=== PATIENT | female | born 2000 | race Caucasian/White ===

== ENCOUNTER 2020-01-06 18:05 | Emergency (ER) | payer OTHER, SELFPAY ==
--- OUTSIDE RECORDS SUMMARY | 2020-01-06 18:08 | XMS REPORT | Continuity of Care Document ---
:2000 Author Organization [facility] t Address [address] [place] [place] [address] Care Team Providers Name Role Phone Unavailable Unavailable Unavailable Problems This patient has no known problems. Allergies, Adverse Reactions, Alerts This patient has no known allergies or adverse reactions. Medications This patient has no known medications. Procedures This patient has no known procedures. Results This patient has no known results.
--- NOTE | 2020-01-06 19:37 | EDPHYS ---
Physician Documentation [facility] Name: Radha Puga Age: 19 yrs Sex: Female : 2000 Arrival Date: 01/06/2020 Time: 18:07 Bed 19 Private MD: ED Physician Xander Schmidt HPI: 01/05 19:28 This 19 yrs old Female presents to ER via Ambulatory with complaints of jmm Allergy Symptoms, Sinus Congestion. 19:28 The patient or guardian reports cough. Onset: The symptoms/episode began/occurred jm gradually, 2 week(s) ago. Modifying factors: The symptoms are alleviated by nothing. the symptoms are aggravated by nothing. This is a 19 year old female with no chronic medical conditions that rpesents to the ED with complaints of cough, sinus congestion, fatigue beginning approx 3 days ago. Symptoms initially began 2 weeks ago but had resolved. Symptoms returned 3 days ago. Denies fever. Denies sore throat. . 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 - Social history:: Smoking status: Patient denies any tobacco usage or history of. ROS: 19:28 Constitutional: Positive for body aches, fatigue. jmm 19:28 Respiratory: Positive for cough. 19:28 All other systems are negative. Exam: 19:28 Constitutional: This is a well developed, well nourished patient who is awake, alert, jmm and in no acute distress. 19:28 Head/Face: atraumatic. Eyes: EOMI, no conjunctival erythema appreciated 19:28 Chest/axilla: Normal chest wall appearance and motion. 19:28 Respiratory: Normal respirations, no respiratory distress appreciated Abdomen/GI: Non distended, soft Back: Normal ROM Skin: General appearance color normal MS/ Extremity: Moves all extremities, no obvious deformities appreciated, no edema noted to the lower extremities Neuro: Awake and alert, normal gait Psych: Behavior is normal, Mood is normal, Patient is cooperative and pleasant 19:28 Head/face: Sinus tenderness, is not appreciated. 19:28 ENT: Posterior pharynx: erythema, that is mild. 19:28 Cardiovascular: Rate: normal, Rhythm: regular, Pulses: no pulse deficits are appreciated. Vital Signs: 18:31 BP 117 / 81; Pulse 86; Resp 15 S; Temp 98.1; Pulse Ox 100% on R/A; Weight 77.11 kg (R); ca1 Height 5 ft. 1 in. (154.94 cm) (R); 19:30 BP 115 / 80; Pulse 81; Resp 18; Temp 98.1; Pulse Ox 100% on R/A; mg2 18:31 Body Mass Index 32.12 (77.11 kg, 154.94 cm) ca1 MDM: 19:28 Patient medically screened. [facility] 19:36 Data reviewed: vital signs, nurses notes. Counseling: I had a detailed discussion with scar the patient and/or guardian regarding: the historical points, exam findings, and any diagnostic results supporting the discharge/admit diagnosis, the need for outpatient follow up, to return to the emergency department if symptoms worsen or persist or if there are any questions or concerns that arise at home. Administered Medications: 19:37 Drug: Decadron 10 mg Route: IM; Site: left gluteus; mg2 19:37 Follow up: Response: No adverse reaction; Medication administered at discharge. mg2 Disposition: 01/06/20 19:36 Discharged to Home. Impression: Acute upper respiratory infection, unspecified. - Condition is Stable. - Discharge Instructions: Sinusitis, Adult, Upper Respiratory Infection, Adult. - Prescriptions for Flonase Allergy Relief 50 mcg/actuation Nasal spray,suspension - inhale 2 spray by INTRANASAL route once daily; 1 bottle. - Medication Reconciliation Form, Thank You Letter, Antibiotic Education, Prescription Opioid Use form. - Follow up: Private Physician; When: 2 - 3 days; Reason: Recheck today's complaints, Continuance of care, Re-evaluation by your physician. Addendum: 01/08/2020 19:28 Co-signature as Attending Physician, Xander Schmidt MD. r n Signatures: Tyron Masterson PA PA jmm Nieto, Roman, MD MD rn Gardose, Michele, RN RN mg2 Cherie Araujo RN RN ca1 Corrections: (The following items were deleted from the chart) 01/05 19:51 19:36 01/06/2020 19:36 Discharged to Home. Impression: Acute upper respiratory mg2 infection, unspecified. Condition is Stable. Forms are Medication Reconciliation Form, Thank You Letter, Antibiotic Education, Prescription Opioid Use. Follow up: Private Physician; When: 2 - 3 days; Reason: Recheck today's complaints, Continuance of care, Re-evaluation by your physician. scar
--- NOTE | 2020-01-06 19:37 | ER ---
Nurse's Notes [facility] Name: Radha Puga Age: 19 yrs Sex: Female : 2000 Arrival Date: 01/06/2020 Time: 18:07 Bed 19 Private MD: Diagnosis: Acute upper respiratory infection, unspecified Presentation: 01/05 18:31 Chief complaint: Patient states: Runny nose, congestion x 2 days. Reports cough. Denies ca1 fever. States, "I am allergic to a lot of things, and I am pretty sure this is just my allergies". Coronavirus screen: Client denies travel out of the [place] in the last 14 days. congestion, cough unrelated to allergies, runny nose. Ebola Screen: Patient negative for fever greater than or equal to 101.5 degrees Fahrenheit, and additional compatible Ebola Virus Disease symptoms Patient denies exposure to infectious person. Initial Sepsis Screen: Does the patient meet any 2 criteria? No. Patient's initial sepsis screen is negative. Does the patient have a suspected source of infection? No. Patient's initial sepsis screen is negative. Risk Assessment: Do you want to hurt yourself or someone else? Patient reports no desire to harm self or others. Onset of symptoms was January 06, 2020. 18:31 Method Of Arrival: Ambulatory ca1 18:31 Acuity: ENMANUEL 4 ca1 Triage Assessment: 19:10 General: Appears in no apparent distress. comfortable, Behavior is calm, cooperative. mg2 WAGE HAND: 18:34 LMP 12/23/2019 ca1 Historical: - Allergies: 18:34 No Known Allergies; ca1 - Home Meds: 18:34 None [Active]; ca1 - PMHx: 18:34 None; ca1 - PSHx: 18:34 ; ca1 - Immunization history:: Adult Immunizations up to date. - Social history:: Smoking status: Patient denies any tobacco usage or history of. Screenin:10 Abuse screen: Denies threats or abuse. Denies injuries from another. Nutritional mg2 screening: No deficits noted. Tuberculosis screening: No symptoms or risk factors identified. Fall Risk None identified. Assessment: 19:10 General: Appears in no apparent distress. comfortable, Behavior is calm, cooperative. mg2 Pain: Complains of pain in head. Neuro: Level of Consciousness is awake, alert, obeys commands, Oriented to person, place, time, situation, Reports headache. Cardiovascular: No deficits noted. Respiratory: Reports cough that is Airway is patent Trachea midline Respiratory effort is even, unlabored, Respiratory pattern is regular, symmetrical. GI: No signs and/or symptoms were reported involving the gastrointestinal system. : No signs and/or symptoms were reported regarding the genitourinary system. EENT: Reports nasal congestion. Derm: Skin is intact, is healthy with good turgor, Skin is pink, warm \\T\\ dry. normal. Musculoskeletal: Circulation, motion, and sensation intact. Capillary refill < 3 seconds. Vital Signs: 18:31 BP 117 / 81; Pulse 86; Resp 15 S; Temp 98.1; Pulse Ox 100% on R/A; Weight 77.11 kg (R); ca1 Height 5 ft. 1 in. (154.94 cm) (R); 19:30 BP 115 / 80; Pulse 81; Resp 18; Temp 98.1; Pulse Ox 100% on R/A; mg2 18:31 Body Mass Index 32.12 (77.11 kg, 154.94 cm) ca1 ED Course: 18:07 Patient arrived in ED. ag5 18:33 Triage completed. ca1 18:34 Arm band placed on right wrist. ca1 18:36 Tyron Masterson PA is PHCP. [facility] 18:36 Xander Schmidt MD is Attending Physician. [facility] 19:10 Patient has correct armband on for positive identification. mg2 19:10 No provider procedures requiring assistance completed. Patient did not have IV access mg2 during this emergency room visit. 19:30 James France, JOSÉ MIGUEL is Primary Nurse. mg2 Administered Medications: 19:37 Drug: Decadron 10 mg Route: IM; Site: left gluteus; mg2 19:37 Follow up: Response: No adverse reaction; Medication administered at discharge. mg2 Outcome: 19:36 Discharge ordered by MD. [facility] 19:50 Discharged to home ambulatory. mg2 19:50 Condition: good 19:50 Discharge instructions given to patient, Instructed on discharge instructions, follow up and referral plans. medication usage, Demonstrated understanding of instructions, follow-up care, medications, Prescriptions given X 1. 19:51 Patient left the ED. mg2 Signatures: Tyron Masterson PA PA jmm Gardose, Michele, RN RN mg2 Cherie Araujo RN RN ca1 Jesus Manuel, Michael ag5
[2020-01-06] MEDS ORDERED: dexAMETHasone 10 MG/ML VIAL ONE (19:45)
[2020-01-06 20:35] VITALS: BP 117/81; TEMP 98.1; O2SAT 100
== END 2020-01-06 19:51 | disposition home or self-care (01) ==
LOC: ER 18:05
DX: J06.9 Acute upper respiratory infection, unspecified (principal)
CPT/HCPCS: 96372; 99283; J1100

== ENCOUNTER 2020-08-28 13:17 | Emergency (ER) | payer OTHER, SELFPAY ==
--- OUTSIDE RECORDS SUMMARY | 2020-08-28 13:20 | XMS REPORT | Continuity of Care Document ---
:2000 Author Organization [facility] t Address [address] [place] [address] Care Team Providers Name Role Phone Felice White MD Attending Clinician Ultrasound, libby Attending Clinician Unavailable Eric Borwn Attending Clinician Problems This patient has no known problems. Allergies, Adverse Reactions, Alerts This patient has no known allergies or adverse reactions. Medications This patient has no known medications. Procedures This patient has no known procedures. Encounters Start End Encounter Admission Attending Care Care Encounter Source Date/Time Date/Time Type Type Clinicians Facility Department ID 2020-08-02 2020-08-02 Routine Cristina White [id number] 13:58:44 14:39:18 [place] [id number] Visit [place] [id number] Professio [phone] [address] 2020-07-28 2020-07-28 [address] [place], [facility] [id number] 09:57:50 10:57:50 Visit Adc William Starkey [id number] [place] [id number] Professio [phone] [address] 2020-07-05 2020-07-05 Initial Cristina White INJEFF [id number] 14:25:37 15:16:16 [place] [id number] Visit [place] [id number] Professio [phone] [place] [address] Building 2020-06-28 2020-06-28 Routine MAGALIE Horta [id number] 12:46:10 13:24:11 Marquita Reyes MANAGER OF PROCUREMENT [id number] Visit [facility] [id number] MATERNAL [phone] & CHILD [address] [place] [address] - [place] Results This patient has no known results.
[2020-08-28 14:59] LABS: SARS-COV-2 RT PCR NEGATIVE (NEGATIVE)
--- NOTE | 2020-08-28 15:49 | ER ---
Nurse's Notes [facility] Name: Radha Puga Age: 20 yrs Sex: Female : 2000 Arrival Date: 08/28/2020 Time: 13:18 Bed 30 Private MD: Diagnosis: Acute upper respiratory infection, unspecified Presentation: 08/28 13:43 Chief complaint: Patient states: sore throat and non productive cough since Friday, em denies body aches, loss of taste/smell, or fever. Coronavirus screen: Client denies travel out of the [place] in the last 14 days. Ebola Screen: Patient negative for fever greater than or equal to 101.5 degrees Fahrenheit, and additional compatible Ebola Virus Disease symptoms Patient denies exposure to infectious person. Patient denies travel to an Ebola-affected area in the 21 days before illness onset. No symptoms or risks identified at this time. Initial Sepsis Screen: Does the patient meet any 2 criteria? No. Patient's initial sepsis screen is negative. Does the patient have a suspected source of infection? No. Patient's initial sepsis screen is negative. Risk Assessment: Do you want to hurt yourself or someone else? Patient reports no desire to harm self or others. Onset of symptoms was August 28, 2020. 13:43 Method Of Arrival: Ambulatory em 13:43 Acuity: ENMANUEL 4 em Historical: - Allergies: 13:45 No Known Allergies; em - PMHx: 13:45 None; em - PSHx: 13:45 ; em - Immunization history:: Adult Immunizations up to date. - Social history:: Smoking status: Patient denies any tobacco usage or history of. Screenin:01 Abuse screen: Denies threats or abuse. Denies injuries from another. Nutritional ss screening: No deficits noted. Tuberculosis screening: Never had TB. Fall Risk None identified. Assessment: 15:01 General: Appears in no apparent distress. comfortable, Behavior is calm, cooperative, ss Denies fever. Pain: Denies pain. Neuro: Level of Consciousness is awake, alert, obeys commands, Oriented to person, place, time, situation, Pay Station Attendant are equal bilaterally. Cardiovascular: Capillary refill < 3 seconds is brisk in bilateral fingers Patient's skin is warm and dry. Respiratory: Airway is patent Respiratory effort is even, unlabored, Respiratory pattern is regular, symmetrical. GI: Abdomen is round Pt is almost 27 weeks Patient currently denies diarrhea, nausea, vomiting. EENT: Oral mucosa is moist. Throat is clear. Derm: Skin is pink, warm \T\ dry. normal. Musculoskeletal: Circulation, motion, and sensation intact. Range of motion: intact in all extremities, Swelling absent. Vital Signs: 13:43 BP 115 / 65; Pulse 62; Resp 18; Temp 98.4; Pulse Ox 98% on R/A; Weight 77.11 kg; Height em 5 ft. 1 in. (154.94 cm); Pain 0/10; 13:43 Body Mass Index 32.12 (77.11 kg, 154.94 cm) em ED Course: 13:18 Patient arrived in ED. ds1 13:18 Roxanne Vital F[facility]-C [facility] kb 13:18 Jamison Patino MD is Attending Physician. kb 13:44 Triage completed. em 13:45 Arm band placed on. em 15:01 Patient has correct armband on for positive identification. Bed in low position. Call ss light in reach. 15:54 Shirley Tierney, RN is Primary Nurse. ss 16:11 No provider procedures requiring assistance completed. Patient did not have IV access ss during this emergency room visit. Administered Medications: No medications were administered Outcome: 15:48 Discharge ordered by MD. kb 16:11 Discharged to home ambulatory. ss 16:11 Condition: good 16:11 Discharge instructions given to patient, family, Instructed on discharge instructions, follow up and referral plans. medication usage, Demonstrated understanding of instructions, follow-up care. 16:11 Patient left the ED. ss Signatures: Roxanne Vital FNP-C FNP-Ckb Munoz, Edgar, JOSÉ MIGUEL RN Jennifer Arzola ds1 Shirley Tierney, JOSÉ MIGUEL VALDEZ ss
--- NOTE | 2020-08-28 15:49 | EDPHYS ---
Physician Documentation [facility] Name: Radha Puga Age: 20 yrs Sex: Female : 2000 Arrival Date: 08/28/2020 Time: 13:18 Bed 30 Private MD: ED Physician Jamison Patino HPI: 08/28 16:35 This 20 yrs old Female presents to ER via Ambulatory with complaints of Sore kb Throat. 16:35 The patient presents with sore throat. The patient describes throat pain as constant. kb Onset: The symptoms/episode began/occurred 2 day(s) ago. Severity of symptoms: At their worst the symptoms were mild, moderate, in the emergency department the symptoms are unchanged. Modifying factors: The symptoms are alleviated by nothing, the symptoms are aggravated by swallowing, Patient's oral intake status: good Denies contact with similarly ill indivduals. Associated signs and symptoms: Pertinent positives: cough, Sore throat. The patient has not experienced similar symptoms in the past. The patient has not recently seen a physician. Pt reports cough, congestion and sore throat. 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 Historical: - Allergies: 13:45 No Known Allergies; em - PMHx: 13:45 None; em - PSHx: 13:45 ; em - Immunization history:: Adult Immunizations up to date. - Social history:: Smoking status: Patient denies any tobacco usage or history of. ROS: 16:35 Constitutional: Negative for fever, chills, and weight loss, Cardiovascular: Negative kb for chest pain, palpitations, and edema, Abdomen/GI: Negative for abdominal pain, nausea, vomiting, diarrhea, and constipation, MS/Extremity: Negative for injury and deformity, Skin: Negative for injury, rash, and discoloration, Neuro: Negative for headache, weakness, numbness, tingling, and seizure. 16:35 ENT: Positive for sinus congestion, sore throat. 16:35 Respiratory: Positive for cough. Exam: 16:35 Constitutional: This is a well developed, well nourished patient who is awake, alert, kb and in no acute distress. Head/Face: Normocephalic, atraumatic. ENT: Moist Mucous membranes Respiratory: Respirations even and unlabored. No increased work of breathing, no retractions or nasal flaring. Abdomen/GI: Soft, non-tender. No distention Skin: Warm, dry with normal turgor. Normal color. MS/ Extremity: Pulses equal, no cyanosis. Neurovascular intact. Full, normal range of motion. Neuro: Awake and alert, GCS 15, oriented to person, place, time, and situation. Moves all extremities. Normal gait. Vital Signs: 13:43 BP 115 / 65; Pulse 62; Resp 18; Temp 98.4; Pulse Ox 98% on R/A; Weight 77.11 kg; Height em 5 ft. 1 in. (154.94 cm); Pain 0/10; 13:43 Body Mass Index 32.12 (77.11 kg, 154.94 cm) em MDM: 15:24 Patient medically screened. kb 16:33 Data reviewed: vital signs, nurses notes. Data interpreted: Pulse oximetry: on room air kb is 98 %. Interpretation: normal. Counseling: I had a detailed discussion with the patient and/or guardian regarding: the historical points, exam findings, and any diagnostic results supporting the discharge/admit diagnosis, lab results, the need for outpatient follow up, a family practitioner, to return to the emergency department if symptoms worsen or persist or if there are any questions or concerns that arise at home. 08/28 13:46 Order name: Strep; Complete Time: 15:24 08/28 14:35 Order name: Throat Culture EDMS 08/28 14:59 Order name: COVID-19/FLU A+B; Complete Time: 15:24 EDMS Administered Medications: No medications were administered Disposition: 08/28/20 15:48 Discharged to Home. Impression: Acute upper respiratory infection, unspecified. - Condition is Stable. - Discharge Instructions: Upper Respiratory Infection, Adult, Wqak-rv-Atvs, Viral Respiratory Infection, Hish-Wg-Ouyg. - Work release form, Medication Reconciliation Form, Thank You Letter, Antibiotic Education, Prescription Opioid Use form. - Follow up: Emergency Department; When: As needed; Reason: Worsening of condition. Follow up: Private Physician; When: 2 - 3 days; Reason: Recheck today's complaints, Continuance of care, Re-evaluation by your physician. Addendum: 08/31/2020 06:14 Co-signature as Attending Physician, Jamison Patino MD. libby a2 Signatures: Dispatcher [employer] [facility] Roxanne Vital, SENIOR LINUX SYSTEMS ENGINEER-C SENIOR LINUX SYSTEMS ENGINEER-Octavio Monge, RN RN em Shirley Tierney RN RN ss Jamison Patino MD MD ma2 Corrections: (The following items were deleted from the chart) 08/28 14:16 13:47 CORONAVIRUS+MR.LAB.BRZ ordered. EDNH EDNH 14:16 13:47 Influenza Screen (A \T\ B)+BA.LAB.BRZ ordered. [facility] EDNH 16:11 15:48 08/28/2020 15:48 Discharged to Home. Impression: Acute upper respiratory ss infection, unspecified. Condition is Stable. Forms are Medication Reconciliation Form, Thank You Letter, Antibiotic Education, Prescription Opioid Use. Follow up: Emergency Department; When: As needed; Reason: Worsening of condition. Follow up: Private Physician; When: 2 - 3 days; Reason: Recheck today's complaints, Continuance of care, Re-evaluation by your physician. kb
[2020-08-28 16:20] VITALS: BP 115/65; TEMP 98.4; O2SAT 98
== END 2020-08-28 16:11 | disposition home or self-care (01) ==
LOC: ER 13:17
DX: J06.9 Acute upper respiratory infection, unspecified (principal); Z20.822 Contact with and (suspected) exposure to COVID-19
CPT/HCPCS: 87070; 87081; 0240U; 99281 ×2

== ENCOUNTER 2020-08-30 20:31 | Emergency (ER) | payer OTHER ==
--- OUTSIDE RECORDS SUMMARY | 2020-08-30 20:34 | XMS REPORT | Continuity of Care Document ---
:2000 Author Organization [facility] t Address [address] [place] [address] Care Team Providers Name Role Phone Marcelino MENDEZ Attending Clinician Felice White MD Attending Clinician Ultrasound, Mfm Attending Clinician Unavailable Eric Brown Attending Clinician Problems This patient has no known problems. Allergies, Adverse Reactions, Alerts This patient has no known allergies or adverse reactions. Medications This patient has no known medications. Procedures This patient has no known procedures. Encounters Start End Encounter Admission Attending Care Care Encounter Source Date/Time Date/Time Type Type Clinicians Facility Department ID 2020-08-30 2020-08-30 Telephone MAGALIE Benson [id number] 00:00:00 00:00:00 Ida Starkey [id number] [place] [id number] Professio [id number] [address] 2020-08-29 2020-08-29 Telephone Cristina White [id number] 00:00:00 00:00:00 Felice Starkey [id number] [place] [id number] Professio [phone] [address] 2020-08-02 2020-08-02 Routine Cristina White [id number] 13:58:44 14:39:18 Cam [place] [id number] Visit [place] [id number] Professio [phone] [address] 2020-07-28 2020-07-28 Burrito Maker Ultrasound, [facility] [id number] 09:57:50 10:57:50 Visit Adc [facility] [place] [id number] [place] [id number] Professio [phone] [address] 2020-07-05 2020-07-05 Initial White, Cristina [facility] [id number] 14:25:37 15:16:16 Cam [place] [id number] Visit [place] [id number] Professio [phone] [address] 2020-06-28 2020-06-28 Routine Horta, [facility] [id number] 12:46:10 13:24:11 Roshunda R DRILLER'S OFFSIDER [id number] Visit [facility] [id number] MATERNAL [phone] & CHILD [address] [place] [address] - [place] Results This patient has no known results.
--- NOTE | 2020-08-30 23:06 | ER ---
Nurse's Notes [facility] Name: Radha Puga Age: 20 yrs Sex: Female : 2000 Arrival Date: 08/30/2020 Time: 20:36 Bed Treatment Private MD: Diagnosis: Acute bronchitis, unspecified Presentation: 08/30 20:43 Chief complaint: Patient states: Was here 2 days TABBER, negative for Covid and Strep. ca1 Symptoms are getting worse and I need to get an extension of my work note. S/S now are body aches, chills, headache, cough and congestion. Coronavirus screen: Client denies travel out of the [place] in the last 14 days. congestion, diarrhea, muscle pain, runny nose. Ebola Screen: Patient negative for fever greater than or equal to 101.5 degrees Fahrenheit, and additional compatible Ebola Virus Disease symptoms Patient denies exposure to infectious person. Patient denies travel to an Ebola-affected area in the 21 days before illness onset. No symptoms or risks identified at this time. Initial Sepsis Screen: Does the patient meet any 2 criteria? No. Patient's initial sepsis screen is negative. Does the patient have a suspected source of infection? No. Patient's initial sepsis screen is negative. Risk Assessment: Do you want to hurt yourself or someone else? Patient reports no desire to harm self or others. Onset of symptoms was August 30, 2020. 20:43 Method Of Arrival: Ambulatory ca1 20:43 Acuity: ENMANUEL 4 ca1 Triage Assessment: 23:30 General: Appears in no apparent distress. Behavior is calm, cooperative. 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 Screenin:32 Abuse screen: Denies threats or abuse. Denies injuries from another. Nutritional iw screening: No deficits noted. Tuberculosis screening: No symptoms or risk factors identified. Fall Risk None identified. Assessment: 22:30 General: Appears in no apparent distress. Pain: Denies pain. Neuro: Level of iw Consciousness is awake, alert, obeys commands, Oriented to person, place, time, situation. Cardiovascular: Capillary refill < 3 seconds in bilateral fingers. Respiratory: Respiratory effort is even, unlabored, Respiratory pattern is regular, symmetrical. Derm: Skin is intact, is healthy with good turgor. Musculoskeletal: Range of motion: intact in all extremities. Vital Signs: 20:43 BP 119 / 70; Pulse 101; Resp 16 S; Temp 98.2(TE); Pulse Ox 99% on R/A; Weight 79.38 kg ca1 (R); Height 5 ft. 1 in. (154.94 cm) (R); 20:43 Body Mass Index 33.07 (79.38 kg, 154.94 cm) ca1 ED Course: 20:36 Patient arrived in ED. bp1 20:46 Triage completed. ca1 20:47 Arm band placed on right wrist. ca1 22:28 Mirella Rossi RN is Primary Nurse. iw 22:30 Patient has correct armband on for positive identification. iw 22:31 Aleks Umaña PA is PHCP. cp 22:31 Jamison Patino MD is Attending Physician. cp 23:33 No provider procedures requiring assistance completed. Patient did not have IV access iw during this emergency room visit. Administered Medications: No medications were administered Outcome: 23:05 Discharge ordered by . cp 23:33 Discharged to home ambulatory. iw 23:33 Condition: good 23:33 Discharge instructions given to patient, Instructed on discharge instructions, follow up and referral plans. medication usage, Demonstrated understanding of instructions, follow-up care, medications, Prescriptions given X 1. 23:34 Patient left the ED. iw Signatures: Mirella Rossi RN RN iw Aleks Umaña PA PA cp Cherie Araujo RN RN ca1 Chelsy Brown bp1
--- NOTE | 2020-08-30 23:06 | EDPHYS ---
Physician Documentation [facility] Name: Radha Puga Age: 20 yrs Sex: Female : 2000 Arrival Date: 08/30/2020 Time: 20:36 Bed Treatment Private MD: ED Physician Jamison Patino HPI: 08/30 22:54 This 20 yrs old Female presents to ER via Ambulatory with complaints of Covid cp symptoms, Recheck. 22:54 The patient or guardian reports cough, that is intermittent, with productive sputum. cp Onset: The symptoms/episode began/occurred 4 day(s) ago. Associated signs and symptoms: Pertinent positives: sore throat, Pertinent negatives: chest pain, diarrhea, fever, vomiting. Severity of symptoms: in the emergency department the symptoms are worse. Patient reports being seen in this ED 2 days ago and having negative test for COVID-19 and/or influenza. Reports cough getting worse. Denies fever, denies shortness of breath. 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 ROS: 22:55 Eyes: Negative for injury, pain, redness, and discharge. cp 22:55 Constitutional: Positive for chills, Negative for body aches, fever, poor PO intake. 22:55 ENT: Positive for sore throat, Negative for drainage from ear(s), ear pain, difficulty swallowing, difficulty handling secretions. 22:55 Cardiovascular: Negative for chest pain. 22:55 Respiratory: Positive for cough, "sounds productive", Negative for shortness of breath, wheezing. 22:55 Abdomen/GI: Negative for abdominal pain, nausea, vomiting, and diarrhea. 22:55 Neuro: Positive for headache, Negative for altered mental status, weakness. 22:55 All other systems are negative. Exam: 22:57 Head/Face: Normocephalic, atraumatic. cp 22:57 Constitutional: The patient appears in no acute distress, alert, awake, non-toxic, well developed, well nourished. 22:57 Eyes: Periorbital structures: appear normal, Conjunctiva: normal, no exudate, no cp injection, Sclera: no appreciated abnormality, Lids and lashes: appear normal, bilaterally. 22:57 ENT: External ear(s): are unremarkable, Ear canal(s): are normal, clear, TM's: cp dullness, bilaterally, Nose: is normal, Mouth: Lips: moist, Oral mucosa: moist, Posterior pharynx: Airway: no evidence of obstruction, patent. 22:57 Neck: ROM/movement: is normal, is supple, no meningismus, no nuchal rigidity, Lymph nodes: no appreciated lymphadenopathy. 22:57 Chest/axilla: Inspection: normal. 22:57 Cardiovascular: Rate: tachycardic, Rhythm: regular. 22:57 Respiratory: the patient does not display signs of respiratory distress, Respirations: normal, no use of accessory muscles, no retractions, labored breathing, is not present, Breath sounds: bronchial sounds, are not appreciated, decreased breath sounds, are not appreciated, stridor, is not appreciated, + upper airway congestion. wheezing: is not appreciated. 22:57 Abdomen/GI: Inspection: gravid appearance, is noted. Vital Signs: 20:43 BP 119 / 70; Pulse 101; Resp 16 S; Temp 98.2(TE); Pulse Ox 99% on R/A; Weight 79.38 kg ca1 (R); Height 5 ft. 1 in. (154.94 cm) (R); 20:43 Body Mass Index 33.07 (79.38 kg, 154.94 cm) ca1 MDM: 22:37 Patient medically screened. cp 23:00 Differential diagnosis: bronchitis, flu, URI, pneumonia. cp 23:04 Data reviewed: vital signs, nurses notes, and as a result, I will discharge patient. cp Counseling: I had a detailed discussion with the patient and/or guardian regarding: the historical points, exam findings, and any diagnostic results supporting the discharge/admit diagnosis, to return to the emergency department if symptoms worsen or persist or if there are any questions or concerns that arise at home. Administered Medications: No medications were administered Disposition: 08/31 06:16 Co-signature as Attending Physician, Jamison Patino MD. ma2 Disposition: 08/30/20 23:05 Discharged to Home. Impression: Acute bronchitis, unspecified. - Condition is Stable. - Discharge Instructions: Acute Bronchitis, Adult. - Prescriptions for Zithromax Z- Leander 250 mg Oral Tablet - take 1 tablet by ORAL route as directed for 5 days Day 1 - take two (2) tablets one time. Day 2, 3, 4 , 5 take one (1) tablet once daily.; 6 tablet. - Work release form, Medication Reconciliation Form, Thank You Letter, Antibiotic Education, Prescription Opioid Use form. - Follow up: Private Physician; When: 2 - 3 days; Reason: Worsening of condition. - Problem is an ongoing problem. - Symptoms are unchanged. Signatures: Mirella Rossi RN RN iw Aleks Umaña PA PA cp Jamison Paitno MD MD de2 Cherie Araujo RN RN ca1 Corrections: (The following items were deleted from the chart) 08/30 23:34 23:05 08/30/2020 23:05 Discharged to Home. Impression: Acute bronchitis, unspecified. iw Condition is Stable. Forms are Medication Reconciliation Form, Thank You Letter, Antibiotic Education, Prescription Opioid Use. Follow up: Private Physician; When: 2 - 3 days; Reason: Worsening of condition. Problem is an ongoing problem. Symptoms are unchanged. cp
[2020-08-30 23:39] VITALS: BP 119/70; TEMP 98.2; O2SAT 99
== END 2020-08-30 23:34 | disposition home or self-care (01) ==
LOC: ER 20:31
DX: J20.9 Acute bronchitis, unspecified (principal)
CPT/HCPCS: 99282

== ENCOUNTER → 2023-04-18 | Emergency (ER) | payer OTHER, SELFPAY ==
--- OUTSIDE RECORDS SUMMARY | 2023-04-18 12:38 | XMS REPORT | Continuity of Care Document ---
Author Name Unknown Address [address] [place] [address] [facility] thconnect Address [address] [place] [address] Care Team Providers Care Nike Athlete Name Role Phone Ida Benson PA-C Attending Clinician [phone] Cristina White MD Attending Clinician [phone] Ultrasound, [facility] Attending Clinician Marquita Myers Attending Clinician [phone] Encounters Start Date/Time End Date/Time Encounter Type Admission Type Attending Clinicians Care Facility Care Department Encounter ID Source 2020-08-30 00:00:00 2020-08-30 00:00:00 Telephone Ida Benson [facility] [id number] 134 [id number] 2020-08-29 00:00:00 2020-08-29 00:00:00 Telephone Cristina White [facility] [id number] 2020-08-02 13:58:44 2020-08-02 14:39:18 Routine Visit Cristina White [facility] [id number] 2020-07-28 09:57:50 2020-07-28 10:57:50 Manager Customer Visit Ultrasound, [facility] [id number] 2020-07-05 14:25:37 2020-07-05 15:16:16 Initial Visit Cristina White [facility] [id number] 2020-06-28 12:46:10 2020-06-28 13:24:11 Routine Visit Marquita Horta [facility] PEDAL ASSEMBLER [facility] [id number]
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
--- NOTE | 2023-04-18 14:56 | ER ---
Nurse's Notes [facility] Name: Radha Puga Age: 22 yrs Sex: Female : 2000 Arrival Date: 04/18/2023 Time: 12:34 Bed IW1 Private MD: Diagnosis: Contusion of left foot Presentation: 04/18 12:56 Chief complaint: Dropped box of metal gaskets weighing approx 25-30 pounds on left foot hb one hour ago, c/o left foot pain 8/10. Coronavirus screen: At this time, the client does not indicate any symptoms associated with coronavirus-19. Ebola Screen: No symptoms or risks identified at this time. Initial Sepsis Screen: Does the patient meet any 2 criteria? No. Patient's initial sepsis screen is negative. Does the patient have a suspected source of infection? No. Patient's initial sepsis screen is negative. Risk Assessment: Do you want to hurt yourself or someone else? Patient reports no desire to harm self or others. Onset of symptoms was April 18, 2023. 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 - Social history:: Smoking status: Patient denies any tobacco usage or history of. Screenin:50 [facility] ED Fall Risk Assessment (Adult) History of falling in the last 3 months, ko1 including since admission No falls in past 3 months (0 pts). Abuse screen: Denies threats or abuse. Denies injuries from another. Nutritional screening: No deficits noted. Tuberculosis screening: No symptoms or risk factors identified. Vital Signs: 12:56 BP 125 / 91; Pulse 64; Resp 16; Temp 98.4; Pulse Ox 100% on R/A; Weight 83.91 kg; hb Height 5 ft. 1 in. ; Pain 8/10; 14:50 BP 122 / 84; Pulse 62; Resp 15; Pulse Ox 100% ; ko1 12:56 Body Mass Index 34.96 (83.91 kg, 154.94 cm) hb 12:56 Pain Scale: Adult hb ED Course: 12:35 Patient arrived in ED. ts1 12:40 Saurabh Herr MD is Attending Physician. kdr 12:57 Triage completed. hb 12:57 Arm band placed on. hb 13:03 Celia Merino is Primary Nurse. cp4 13:49 Foot Left 3 View XRAY In Process Unspecified. EDMS 14:50 Patient has correct armband on for positive identification. Provided Education on: na. ko1 14:50 No provider procedures requiring assistance completed. Patient did not have IV access ko1 during this emergency room visit. Pramod wrap to left ankle. Administered Medications: No medications were administered Medication: 14:50 VIS not applicable for this client. ko1 Outcome: 14:50 Discharged to home with crutches, with friend, ko1 14:50 Condition: stable 14:50 Discharge instructions given to patient, Instructed on crutch walking, 14:50 Demonstrated understanding of instructions, follow-up care, medications, crutch walking, 14:55 Discharge ordered by . kdr 15:01 Patient left the ED. ko1 Signatures: Dispatcher [employer] EDMS Saurabh Herr MD MD kdr Aliya Salazar RN RN Yocasta Mcgraw RN RN ko1 Dianna Ambriz [facility] ts1 Celia Merino cp4
--- NOTE | 2023-04-18 14:56 | EDPHYS ---
Physician Documentation [facility] Name: Radha Puga Age: 22 yrs Sex: Female : 2000 Arrival Date: 04/18/2023 Time: 12:34 Bed IW1 Private MD: ED Physician Saurabh Herr HPI: 04/18 16:51 This 22 yrs old Female presents to ER via Wheelchair with complaints of Foot Pain, Foot kdr Injury. 16:52 Patient states that a box containing metal gaskets weighing about 25 to 30 pounds fell kdr on her left foot about an hour prior to arrival. She states that her pain in her left foot is an 8 out of 10. There is no open injury noted at the time. Patient is otherwise stable and without other injuries or concerns.. Onset: The symptoms/episode began/occurred suddenly, just prior to arrival. Severity of symptoms: At their worst the symptoms were mild moderate in the emergency department the symptoms are unchanged. 17:20 The patient has not experienced similar symptoms in the past. The patient has not kdr recently seen a physician. 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 - Social history:: Smoking status: Patient denies any tobacco usage or history of. ROS: 17:20 MS/extremity: Positive for injury or acute deformity, contusion, decreased range of kdr motion, swelling, tenderness, of the dorsum of left foot, Negative for 17:21 Constitutional: Negative for fever, chills, and weight loss, kdr Exam: 17:20 Constitutional: This is a well developed, well nourished patient who is awake, alert, kdr and in no acute distress. 17:20 Musculoskeletal/extremity: Extremities: grossly normal except: noted in the dorsum of left foot: Vital Signs: 12:56 BP 125 / 91; Pulse 64; Resp 16; Temp 98.4; Pulse Ox 100% on R/A; Weight 83.91 kg; hb Height 5 ft. 1 in. ; Pain 8/10; 14:50 BP 122 / 84; Pulse 62; Resp 15; Pulse Ox 100% ; ko1 12:56 Body Mass Index 34.96 (83.91 kg, 154.94 cm) hb 12:56 Pain Scale: Adult hb MDM: 14:55 Patient medically screened. kdr 17:21 Data reviewed: vital signs, nurses notes, radiologic studies. kdr 04/18 12:59 Order name: Foot Left 3 View XRAY; Complete Time: 14:45 hb 04/18 14:54 Order name: Crutches kdr 04/18 14:54 Order name: Pramod Wrap: Left foot kdr Administered Medications: No medications were administered Disposition Summary: 04/18/23 14:55 Discharge Ordered Notes: Location: Home kdr Problem: new kdr Symptoms: have improved kdr Condition: Stable kdr Diagnosis - Contusion of left foot kdr Followup: kdr - With: Private Physician - When: 2 - 3 days - Reason: If symptoms return, Further diagnostic work-up, Recheck today's complaints, Continuance of care, Re-evaluation by your physician Discharge Instructions: - Discharge Summary Sheet kdr - Foot Sprain kdr - Contusion, [id number] kdr - Foot Contusion, [id number] kdr - Foot Pain kdr Forms: - Medication Reconciliation Form kdr - Thank You Letter kdr - Patient Portal Instructions kdr - Leadership Thank You Letter kdr Signatures: Dispatcher [employer] Saurabh Griffin MD MD kdr Aliya Salazar, RN RN hb
[2023-04-18 16:12] VITALS: BP 122/84; TEMP 98.4; O2SAT 100
== END ==
LOC: ER 12:34
DX: S90.32XA Contusion of left foot, initial encounter (principal)
CPT/HCPCS: 99283